=== PATIENT | female | born 1955 | race African-American/Black ===

== ENCOUNTER 2016-12-30 12:34 | Emergency (ER) | payer MEDICAID ==
[~2016-12-30] VITALS: Ht 149.9 cm; Wt 108.4 kg
[2016-12-30 13:05] VITALS: BP 117/112
--- NOTE | 2016-12-30 13:29 | Emergency Room Report ---
History of Present Illness General Chief Complaint: Dyspnea/Respdistress Source: Patient Present Illness HPI 61 YO Female presents to the ED c/o two temporary episodes of CP on Thursday with MILAN ever since. Pt also reports intermittent lower extremity swelling x 2 months. pt reports swelling progresses throughout the day and is usually resolved upon awakening in the am. pt. reports hx of HTN, and DM however is not prescribed medications. pt. states her last visit with a PCP was over 5 years ago. pt. denies recent illness, N/V/F/C, rashes. daughter reports that she heard audible wheezes from pt. throughout the weekend. pt. reports non productive cough. denies trauma/fall, erythema, or increased temperature of the extremities. Denies Palpitations, LOC, AMS, dizziness, Changes in Vision, Sensation, paresthesias, or a sudden severe headache. Allergies: Coded Allergies: BANANA (Verified Allergy, Unknown, 12/30/16) Patient History Past Medical History: see triage record Past Surgical History: none Pertinent Family History: none Last Menstrual Period: N/A Now: No Immunizations: UTD Reviewed Nursing Documentation: PMH: Agreed, PSxH: Agreed Nursing Documentation-PMH Hx Hypertension: Yes Hx Diabetes: Yes Review of Systems All Other Systems: negative except mentioned in HPI Physical Exam Vital Signs Date Time Temp Pulse Resp B/P Pulse Ox O2 Delivery O2 Flow Rate FiO2 12/30/16 12:56 98.2 83 22 117/112 97 Room Air Sp02 EP Interpretation: reviewed, abnormal - elevated diastolic pressure General Appearance: no apparent distress, alert, GCS 15, non-toxic, obese Head: normocephalic, atraumatic Eyes: bilateral eye PERRL, bilateral eye normal inspection ENT: hearing grossly normal, normal pharynx, no angioedema, normal voice Neck: full range of motion, supple/symm/no masses Respiratory: chest non-tender, lungs clear, normal breath sounds, speaking full sentences, other - distant lung sounds Cardiovascular #1: regular rate, rhythm, normal capillary refill, edema - bilateral 1+ non-pitting ankle edema Cardiovascular #2: 2+ dorsalis pedis (R), 2+ dorsalis pedis (L) Gastrointestinal: non tender, soft, no guarding, no rebound Rectal: deferred Musculoskeletal: back normal, gait/station normal, normal range of motion, non- tender, no calf tenderness Neurologic: alert, oriented x3, responsive, motor strength/tone normal, sensory intact, speech normal Psychiatric: judgement/insight normal, memory normal, mood/affect normal Skin: normal color, no rash, warm/dry, well hydrated Medical Decision Making PA Attestation Dr. Harden is my supervising Physician whom patient management has been discussed with. Diagnostic Impression: Primary Impression: Dyspnea on exertion Additional Impressions: Lower extremity edema HTN (hypertension) Qualified Codes: I15.9 - Secondary hypertension, unspecified Urinary tract infection Qualified Codes: N30.01 - Acute cystitis with hematuria ER Course 61 YO Female presents to the ED c/o two temporary episodes of CP on Thursday with MILAN ever since. Pt also reports intermittent lower extremity swelling x 2 months. pt reports swelling progresses throughout the day and is usually resolved upon awakening in the am. pt. reports hx of HTN, and DM however is not prescribed medications. pt. states her last visit with a PCP was over 5 years ago. pt. denies recent illness, N/V/F/C, rashes. daughter reports that she heard audible wheezes from pt. throughout the weekend. pt. reports non productive cough. denies trauma/fall, erythema, or increased temperature of the extremities. Denies Palpitations, LOC, AMS, dizziness, Changes in Vision, Sensation, paresthesias, or a sudden severe headache. Ddx considered but are not limited to [place], pneumonia, contusion, costochondritis , PE, ACS, Shoulder strain, Chest wall contusion. aortic dissection, elevated glucose, HTN Vital signs: are WNL, pt. is afebrile H&PE are most consistent with dyspnea on exertion requiring cardiac work up as this is a new onset, and pt. has cardiac risk factors. ORDERS: - EK BPM NSR, no acute ST changes interpreted by Dr. Harden -CBC: unremarkable -CMP: unremarkable -BNP: elevated 212 -CK-MB: WNL/unremarkable -Total CK: elevated 161 -Troponins: WNL/unremarkable -UA: moderate bacteria, elevated wbc's and leukocytes indicative of UTI CXR 1 view : No consolidation, effusion, pneumothorax or acute cardiopulmonary findings per soft read in ED by Dr. Harden - and confirmed in official radiology report. - CTA Chest: no definite large vessel central pulmonary embolus demonstrated, no acute pulmonary disease, borderline cardiomegaly per official radiology report. ED INTERVENTIONS: - PT. placed on cardiac monitoring. - Extensive pt. education on the importance of primary care, pt. is given a list of free/reduced cost clinics in the area for follow up. d/w pt. to return to the ED promptly if she has worsening or new symptoms. DISCHARGE: At this time pt. is stable for d/c to home. Will provide printed patient care instructions, and any necessary prescriptions. Care plan and follow up instructions have been discussed with the patient prior to discharge. Labs Test 12/30/16 14:00 12/30/16 15:10 White Blood Count 10.7 K/UL (4.8-10.8) Red Blood Count 4.03 M/UL (4.20-5.40) Hemoglobin 12.4 G/DL (12.0-16.0) Hematocrit 37.0 % (37.0-47.0) Mean Corpuscular Volume 92 FL (80-99) Mean Corpuscular Hemoglobin 30.8 PG (27.0-31.0) Mean Corpuscular Hemoglobin Concent 33.6 G/DL (32.0-36.0) Red Cell Distribution Width 12.9 % (11.6-14.8) Platelet Count 264 K/UL (150-450) Mean Platelet Volume 5.3 FL (6.5-10.1) Neutrophils (%) (Auto) 46.4 % (45.0-75.0) Lymphocytes (%) (Auto) 46.0 % (20.0-45.0) Monocytes (%) (Auto) 5.9 % (1.0-10.0) Eosinophils (%) (Auto) 0.8 % (0.0-3.0) Basophils (%) (Auto) 0.9 % (0.0-2.0) Sodium Level 144 mEQ/L (135-145) Potassium Level 4.2 mEQ/L (3.4-4.9) Chloride Level 100 mEQ/L (98-107) Carbon Dioxide Level 29 mEQ/L (20-30) Anion Gap 15 (5-15) Blood Urea Nitrogen 15 mg/dL (7-23) Creatinine 0.8 mg/dL (0.5-0.9) Estimat Glomerular Filtration Rate > 60 mL/min (>60) Glucose Level 95 mg/dL (74-106) Calcium Level 9.3 mg/dL (8.6-10.2) Total Bilirubin 0.3 mg/dL (0.0-1.2) Aspartate Amino Transf (AST/SGOT) 18 U/L (5-40) Alanine Aminotransferase (ALT/SGPT) 19 U/L (3-33) Alkaline Phosphatase 60 U/L (35-104) Total Creatine Kinase 161 U/L (26-140) Creatine Kinase MB 1.6 ng/mL (< 3.8) Creatine Kinase MB Relative Index 0.9 Troponin I < 0.30 ng/mL (<=0.30) Pro-B-Type Natriuretic Peptide 212 pg/mL (0-125) Total Protein 7.5 g/dL (6.6-8.7) Albumin 4.2 g/dL (3.5-5.2) Globulin 3.3 g/dL Albumin/Globulin Ratio 1.2 (1.0-2.7) Urine Color Pale yellow Urine Appearance Clear Urine pH 6.5 (4.5-8.0) Urine Specific [place] 1.010 (1.005-1.035) Urine Protein Negative (NEGATIVE) Urine Glucose (UA) Negative (NEGATIVE) Urine Ketones Negative (NEGATIVE) Urine Occult Blood 1+ (NEGATIVE) Urine Nitrite Negative (NEGATIVE) Urine Bilirubin Negative (NEGATIVE) Urine Urobilinogen Normal MG/DL (0.0-1.0) Urine Leukocyte Esterase 3+ (NEGATIVE) Urine RBC 2-4 /HPF (0 - 2) Urine WBC 5-10 /HPF (0 - 2) Urine Squamous Epithelial Cells Few /LPF (NONE/OCC) Urine Amorphous Sediment Few /LPF (NONE) Urine Bacteria Moderate /HPF (NONE) EKG Diagnostic Results EP Interpretation: Dr. Harden Rate: normal - 89 BPM Rhythm: NSR ST Segments: no acute changes ASA given to the pt in ED: No PA Scribe Text EKG has been reviewed and interpreted by Dr. Harden Chest X-Ray Diagnostic Results # of Views/Limited/Complete: 1 View Indication: Chest Pain Impression: No acute disease Date Electronically Signed: Dec 30, 2016 Time Electronically Signed: 16:10 Interpreting ER Physician: interpreted by Dr. Harden PA Scribe Text these interpretations performed by the Doctor were scribed by PA Last Vital Signs Date Time Temp Pulse Resp B/P Pulse Ox O2 Delivery O2 Flow Rate FiO2 12/30/16 12:56 98.2 83 22 117/112 97 Room Air Disposition: HOME, SELF-CARE Condition: Stable Scripts Albuterol Sulfate* (ALBUTEROL SULFATE MDI*) 8.5 Gm Hfa.aer.ad 2 PUFF INH Q4H, #1 INH 0 Refills Prov: Guerita Lancaster 12/30/16 Nitrofurantoin Monohyd/M-Cryst* (MACROBID 100 MG*) 100 Mg Capsule 100 MG ORAL EVERY 12 HOURS for 5 Days, #10 CAP Prov: Guerita Lancaster 12/30/16 Hydrochlorothiazide* (HYDROCHLOROTHIAZIDE*) 25 Mg Tablet 25 MG ORAL DAILY for 30 Days, #30 TAB Prov: Guerita Lancaster 12/30/16 Patient Instructions: Hypertension, Shortness of Breath, [id number] Additional Instructions: Take medications as directed. Follow up with Primary care provider in 3-5 days Review list of health clinics Return sooner to ED if new symptoms occur, or current symptoms become worse. - Please note that this Emergency Department Report was dictated using [email or web address] watcher technology software, occasionally this can lead to erroneous entry secondary to interpretation by the dictation equipment. Guerita Lancaster Dec 30, 2016 13:29
[2016-12-30 14:25] LABS: BASOPHILS % (AUTO) 0.9 % (0.0-2.0); EOSINOPHILS % (AUTO) 0.8 % (0.0-3.0); MEAN CORPUSCULAR HEMOGLOBIN 30.8 PG (27.0-31.0); MEAN CORPUSCULAR HGB CONC 33.6 G/DL (32.0-36.0); MEAN CORPUSCULAR VOLUME 92 FL (80-99); MEAN PLATELET VOLUME 5.3 FL (6.5-10.1); MONOCYTES % (AUTO) 5.9 % (1.0-10.0); NEUTROPHILS % (AUTO) 46.4 % (45.0-75.0); PLATELET COUNT 264 K/UL (150-450); RED BLOOD COUNT 4.03 M/UL (4.20-5.40); RED CELL DISTRIBUTION WIDTH 12.9 % (11.6-14.8); WHITE BLOOD COUNT 10.7 K/UL (4.8-10.8)
[2016-12-30] MEDS ORDERED: Lisinopril 10mg tab ORAL ONE (14:30)
[2016-12-30 14:42] LABS: TROPONIN I < 0.30 ng/mL (<=0.30)
[2016-12-30 14:45] LABS: ALANINE AMINOTRANSFERASE 19 U/L (3-33); ALBUMIN/GLOBULIN RATIO 1.2 (1.0-2.7); ANION GAP 15 (5-15); ASPARTATE AMINO TRANSFERASE 18 U/L (5-40); CALCIUM 9.3 mg/dL (8.6-10.2); CARBON DIOXIDE 29 mEQ/L (20-30); CHLORIDE 100 mEQ/L (98-107); CREATININE 0.8 mg/dL (0.5-0.9); GLOMERULAR FILTRATION RATE > 60 mL/min (>60); HEMOLYSIS 0; POTASSIUM 4.2 mEQ/L (3.4-4.9); SODIUM 144 mEQ/L (135-145); TOTAL PROTEIN 7.5 g/dL (6.6-8.7)
[2016-12-30 14:55] LABS: CKMB 1.6 ng/mL (< 3.8)
[2016-12-30 15:55] LABS: APPEARANCE,URINE CLEAR; KETONES,URINE NEGATIVE (NEGATIVE); LEUKOCYTE ESTERASE ,URINE 3+ (NEGATIVE); NITRITE,URINE NEGATIVE (NEGATIVE); PH,URINE 6.5 (4.5-8.0); PROTEIN,URINE NEGATIVE (NEGATIVE); UROBILINOGEN,URINE NORMAL MG/DL (0.0-1.0)
[2016-12-30 16:22] LABS: SQUAMOUS EPITHELIAL CELL,UR FEW /LPF (NONE/OCC)
[2016-12-30 16:23] LABS: AMORPHOUS SEDIMENT,UR FEW /LPF; BACTERIA,URINE MODERATE /HPF
[2016-12-30 16:30] VITALS: BP 156/80
--- NOTE | 2016-12-30 17:08 | Diagnostic Imaging Report ---
ndication: Shortness of breath, hypertension, feet swelling, pain Technique: IV administration nonionic contrast. Spiral acquisitions obtained from the lung bases to the lung apices. Multiplanar and 3-D reconstructions were generated. Total dose length product 1014 mGycm. CTDIvol(s) 12, 12, 41 mGy. Dose reduction achieved using automated exposure control Comparison: None Findings: Pulmonary arterial opacification is suboptimal, probably due to patient body habitus. This precludes confident exclusion of distal embolic disease. No gross large vessel central pulmonary emboli demonstrated. No thoracic aortic aneurysm or dissection. There is classic great vessel branching anatomy. Normal caliber pulmonary arteries. No evidence of left ventricular dilatation. Borderline cardiomegaly. Linear scarring is seen at the lung bases. No infiltrates, effusions, masses, or nodules. No pericardial effusion. No mediastinal or hilar mass or adenopathy. No axillary or chest wall mass or adenopathy. Limited evaluation of the upper dome anatomy is unremarkable. The bones demonstrate degenerative thoracic spondylosis changes. Impression: Limited exam, due to somewhat suboptimal opacification of the pulmonary arteries. No definite large vessel central pulmonary embolus demonstrated No acute pulmonary disease Borderline cardiomegaly Degenerative spondylosis incidentally noted The CT scanner at [facility] is accredited by the [employer] and the scans are performed using protocols designed to limit radiation exposure to as low as reasonably achievable to attain images of sufficient resolution adequate for diagnostic evaluation.
[2016-12-30] MEDS ORDERED: HYDROCHLOROTHIA25 MG ORAL (17:43)
[2016-12-30] MEDS ORDERED: NITROFURANTOIN100 M2 ORAL (17:43)
[2016-12-30] MEDS ORDERED: ALBUTEROL SULF8.5 GM INH (17:43)
[2016-12-30 17:49] VITALS: BP 169/87
--- NOTE | 2016-12-30 18:21 | Diagnostic Imaging Report ---
Indication: PAIN Technique: One view of the chest Comparison: none Findings: Lungs and pleural space are clear. Heart size is normal. The patient is rotated to the left Impression: No acute process
--- NOTE | 2016-12-31 16:38 | Cardiology Report ---
APPROVED REPORT EKG Measurement Heart [id number] Normal sinus rhythm Anterior infarct, age undetermined Abnormal ECG
== END 2016-12-30 17:49 | disposition home or self-care (01) ==
LOC: EMR 13:30
DX: R06.00 Dyspnea, unspecified (principal); R60.0 Localized edema; I10 Essential (primary) hypertension; N39.0 Urinary tract infection, site not specified; E11.9 Type 2 diabetes mellitus without complications
CPT/HCPCS: 36415; 71010; 71275; 80053; 81003; 82550; 82553; 83880; 84484; 85025; 87086; 87181; 93005; 99284; Q9967

== ENCOUNTER 2017-01-07 20:59 | Inpatient (IN) | payer MEDICAID ==
[~2017-01-07] VITALS: Ht 149.9 cm; Wt 112.0 kg
[~2017-01-07 20:59] MED LIST: ALBUTEROL SULF8.5 GM INH; HYDROCHLOROTHIA25 MG ORAL; NITROFURANTOIN100 M2 ORAL
[2017-01-07] MEDS ORDERED: Tubing IV Cassette IV ONE (21:21)
[2017-01-07] MEDS ORDERED: Albuterol ud Inhalation HHN ONE (21:30)
[2017-01-07] MEDS ORDERED: Ipratropium 0.02% Inh Soln 2.5ml UD HHN ONE (21:30)
[2017-01-07] MEDS ORDERED: Morphine Sulfate 4mg/ml Inj IVP ONE ×2 (21:30→23:30)
[2017-01-07 21:34] LABS: BASOPHILS % (AUTO) 1.1 % (0.0-2.0); EOSINOPHILS % (AUTO) 0.5 % (0.0-3.0); LYMPHOCYTES % (AUTO) 44.4 % (20.0-45.0); MEAN CORPUSCULAR HEMOGLOBIN 30.7 PG (27.0-31.0); MEAN CORPUSCULAR HGB CONC 32.6 G/DL (32.0-36.0); MEAN CORPUSCULAR VOLUME 94 FL (80-99); MEAN PLATELET VOLUME 5.9 FL (6.5-10.1); MONOCYTES % (AUTO) 5.7 % (1.0-10.0); NEUTROPHILS % (AUTO) 48.5 % (45.0-75.0); PLATELET COUNT 309 K/UL (150-450); RED BLOOD COUNT 4.12 M/UL (4.20-5.40); RED CELL DISTRIBUTION WIDTH 12.6 % (11.6-14.8); WHITE BLOOD COUNT 13.1 K/UL (4.8-10.8)
[2017-01-07 21:37] LABS: ALANINE AMINOTRANSFERASE 21 U/L (3-33); ALBUMIN/GLOBULIN RATIO 1.1 (1.0-2.7); ANION GAP 16 (5-15); ASPARTATE AMINO TRANSFERASE 31 U/L (5-40); CALCIUM 9.3 mg/dL (8.6-10.2); CARBON DIOXIDE 28 mEQ/L (20-30); CHLORIDE 93 mEQ/L (98-107); CREATININE 1.1 mg/dL (0.5-0.9); GLOMERULAR FILTRATION RATE > 60 mL/min (>60); HEMOLYSIS 187; POTASSIUM 4.7 mEQ/L (3.4-4.9); SODIUM 137 mEQ/L (135-145); TOTAL PROTEIN 7.7 g/dL (6.6-8.7); TROPONIN I < 0.30 ng/mL (<=0.30)
[2017-01-07 21:47] LABS: CKMB 1.7 ng/mL (< 3.8)
[2017-01-07 23:26] LABS: APPEARANCE,URINE CLEAR; KETONES,URINE NEGATIVE (NEGATIVE); LEUKOCYTE ESTERASE ,URINE 2+ (NEGATIVE); NITRITE,URINE NEGATIVE (NEGATIVE); PH,URINE 6 (4.5-8.0); PROTEIN,URINE NEGATIVE (NEGATIVE); UROBILINOGEN,URINE NORMAL MG/DL (0.0-1.0)
[2017-01-07 23:31] VITALS: BP 151/73
--- NOTE | 2017-01-07 23:39 | Emergency Room Report ---
History of Present Illness General Chief Complaint: Chest Pain Source: Patient Present Illness HPI 61-year-old female presents to ED complaining of chest pain. Per EMS patient chest pain started just prior to arrival. Started at rest. Midsternal, pressure-like, 10 out of 10 initially. Given aspirin and nitroglycerin x2. States chest pain is improved is currently a 7/10. Denies shortness of breath. Patient has history of hypertension and is recently started medication which was prescribed to here at [place]. Does not currently have a PMD. Denies smoking or drug use. No other aggravating or relieving factors. Denies any other associated symptoms Allergies: Coded Allergies: BANANA (Verified Allergy, Unknown, 12/30/16) Patient History Past Medical History: DM, HTN Past Surgical History: none Pertinent Family History: none Social History: Denies: alcohol use, drug use, smoking Last Menstrual Period: N/A Now: No Immunizations: UTD Reviewed Nursing Documentation: PMH: Agreed, PSxH: Agreed Nursing Documentation-PMH Hx Hypertension: Yes Hx Diabetes: Yes Review of Systems All Other Systems: negative except mentioned in HPI Physical Exam Vital Signs Date Time Temp Pulse Resp B/P Pulse Ox O2 Delivery O2 Flow Rate FiO2 01/07/17 20:55 98.8 96 20 140/79 96 Room Air Sp02 EP Interpretation: reviewed, normal General Appearance: alert, GCS 15, non-toxic, obese Head: normocephalic, atraumatic Eyes: bilateral eye PERRL, bilateral eye normal inspection ENT: hearing grossly normal, normal pharynx, no angioedema, normal voice Neck: full range of motion, supple/symm/no masses Respiratory: chest non-tender, lungs clear, normal breath sounds, speaking full sentences Cardiovascular #1: regular rate, rhythm, no edema Cardiovascular #2: 2+ carotid (R), 2+ carotid (L), 2+ radial (R), 2+ radial (L) , 2+ dorsalis pedis (R), 2+ dorsalis pedis (L) Gastrointestinal: normal bowel sounds, non tender, soft, non-distended, no guarding, no rebound Rectal: deferred Genitourinary: normal inspection, no CVA tenderness Musculoskeletal: back normal, gait/station normal, normal range of motion, non- tender Neurologic: alert, oriented x3, responsive, motor strength/tone normal, sensory intact, speech normal Psychiatric: judgement/insight normal, memory normal, mood/affect normal, no suicidal/homicidal ideation Reflexes: 3+ bicep (R), 3+ bicep (L), 3+ tricep (R), 3+ tricep (L), 3+ knee (R) , 3+ knee (L) Skin: normal color, no rash, warm/dry, well hydrated Lymphatic: no adenopathy Medical Decision Making Diagnostic Impression: Primary Impression: ACS (acute coronary syndrome) ER Course Hospital Course 61-year-old female presents ED complaining of chest pain. Improved after aspirin and nitroglycerin Differential diagnoses include: DE/unstable angina, contusion, muscle strain, PTX, rib fracture Clinical course Patient placed on stretcher. on phototypesetting equipment monitor. After initial history and physical I ordered labs, EKG, chest x-ray, morphine labs reviewed- no leukocytosis, hemoglobin/hematocrit stable, electrolytes okay , troponins negative EKG-normal sinus rhythm no acute ischemic changes interpreted by me Chest x-ray- poor respiratory effort no acute infiltrate, no cardiomegaly On reassessment chest pain is improved Case discussed with Dr. Vann and he agreed to accept the patient to his service for further care and support I. I feel this is a highly complex case requiring extensive working including EKG/Rhythm strip, Xray/CT/US, Blood/urine lab work, repeat exams while in ED, and administration of strong opiates/narcotics for pain control, admission to hospital or close patient follow up. Diagnosis - ACS admitted to telemetry in serious condition Labs Test 01/07/17 21:10 01/07/17 22:45 White Blood Count 13.1 K/UL (4.8-10.8) Red Blood Count 4.12 M/UL (4.20-5.40) Hemoglobin 12.6 G/DL (12.0-16.0) Hematocrit 38.8 % (37.0-47.0) Mean Corpuscular Volume 94 FL (80-99) Mean Corpuscular Hemoglobin 30.7 PG (27.0-31.0) Mean Corpuscular Hemoglobin Concent 32.6 G/DL (32.0-36.0) Red Cell Distribution Width 12.6 % (11.6-14.8) Platelet Count 309 K/UL (150-450) Mean Platelet Volume 5.9 FL (6.5-10.1) Neutrophils (%) (Auto) 48.5 % (45.0-75.0) Lymphocytes (%) (Auto) 44.4 % (20.0-45.0) Monocytes (%) (Auto) 5.7 % (1.0-10.0) Eosinophils (%) (Auto) 0.5 % (0.0-3.0) Basophils (%) (Auto) 1.1 % (0.0-2.0) Sodium Level 137 mEQ/L (135-145) Potassium Level 4.7 mEQ/L (3.4-4.9) Chloride Level 93 mEQ/L (98-107) Carbon Dioxide Level 28 mEQ/L (20-30) Anion Gap 16 (5-15) Blood Urea Nitrogen 22 mg/dL (7-23) Creatinine 1.1 mg/dL (0.5-0.9) Estimat Glomerular Filtration Rate > 60 mL/min (>60) Glucose Level 128 mg/dL (74-106) Calcium Level 9.3 mg/dL (8.6-10.2) Total Bilirubin 0.4 mg/dL (0.0-1.2) Aspartate Amino Transf (AST/SGOT) 31 U/L (5-40) Alanine Aminotransferase (ALT/SGPT) 21 U/L (3-33) Alkaline Phosphatase 62 U/L (35-104) Total Creatine Kinase 281 U/L (26-140) Creatine Kinase MB 1.7 ng/mL (< 3.8) Creatine Kinase MB Relative Index 0.6 Troponin I < 0.30 ng/mL (<=0.30) Pro-B-Type Natriuretic Peptide 33 pg/mL (0-125) Total Protein 7.7 g/dL (6.6-8.7) Albumin 4.1 g/dL (3.5-5.2) Globulin 3.6 g/dL Albumin/Globulin Ratio 1.1 (1.0-2.7) EKG Diagnostic Results Rate: normal Rhythm: NSR ST Segments: no acute changes ASA given to the pt in ED: No - given by EMS Rhythm Strip Diag. Results EP Interpretation: yes Rhythm: NSR, no PVC's, no ectopy Chest X-Ray Diagnostic Results Chest X-Ray Ordered: Yes # of Views/Limited/Complete: 1 View EP Interpretation: Yes Interpretation: no consolidation, no pneumothorax, no acute cardiopulmonary disease Indication: Chest Pain Impression: Other - poor inspiratory effort Interpreting ER Provider: Segun Saunders Last Vital Signs Date Time Temp Pulse Resp B/P Pulse Ox O2 Delivery O2 Flow Rate FiO2 01/07/17 23:31 98.8 88 22 151/73 100 Room Air Status: improved Disposition: ADMITTED INPATIENT Condition: Serious Referrals: NOT CHOSEN EL/,REFERRING (PCP) SEGUN SAUNDERS M.D. Jan 07, 2017 23:39
[2017-01-07 23:41] LABS: RBC,URINE 0-2 /HPF (0 - 2)
[2017-01-07 23:42] LABS: BACTERIA,URINE FEW /HPF; SQUAMOUS EPITHELIAL CELL,UR FEW /LPF (NONE/OCC)
[2017-01-08] MEDS ORDERED: Miralax 17gm pkt ORAL PRN
[2017-01-08] MEDS ORDERED: Morphine Sulfate 2mg/ml Inj IVP PRN
[2017-01-08] MEDS ORDERED: Nitroglycerin Subl 0.4mg tab (Bottle Of 25) SL PRN
[2017-01-08] MEDS ORDERED: Albuterol 90mcg Inhaler 8gm INH PRN
[2017-01-08] MEDS ORDERED: Milk of Magnesia 30ml Ud ORAL PRN
[2017-01-08] MEDS ORDERED: Morphine Sulfate 4mg/ml Inj IVP PRN
[2017-01-08] MEDS ORDERED: Zolpidem 5mg tab ORAL PRN
[2017-01-08 00:39] VITALS: BP 130/70
[2017-01-08 04:00] VITALS: BP 135/78
[2017-01-08 08:06] VITALS: BP 150/96
[2017-01-08] MEDS: Docusate 100mg cap ORAL SCH ×2 (08:20→21:13)
[2017-01-08] MEDS: Heparin 5000 units/ml inj SUBQ SCH ×2 (08:23→21:14)
[2017-01-08 08:30] LABS: BASOPHILS % (AUTO) 0.7 % (0.0-2.0); EOSINOPHILS % (AUTO) 0.6 % (0.0-3.0); MEAN CORPUSCULAR HEMOGLOBIN 31.3 PG (27.0-31.0); MEAN CORPUSCULAR HGB CONC 32.9 G/DL (32.0-36.0); MEAN CORPUSCULAR VOLUME 95 FL (80-99); MEAN PLATELET VOLUME 5.7 FL (6.5-10.1); MONOCYTES % (AUTO) 8.6 % (1.0-10.0); NEUTROPHILS % (AUTO) 43.1 % (45.0-75.0); PLATELET COUNT 267 K/UL (150-450); RED BLOOD COUNT 3.65 M/UL (4.20-5.40); RED CELL DISTRIBUTION WIDTH 12.6 % (11.6-14.8); WHITE BLOOD COUNT 9.5 K/UL (4.8-10.8)
[2017-01-08 09:09] LABS: TROPONIN I < 0.30 ng/mL (<=0.30)
[2017-01-08 09:12] LABS: ALANINE AMINOTRANSFERASE 16 U/L (3-33); ALBUMIN/GLOBULIN RATIO 1.2 (1.0-2.7); ANION GAP 13 (5-15); ASPARTATE AMINO TRANSFERASE 15 U/L (5-40); CALCIUM 8.9 mg/dL (8.6-10.2); CARBON DIOXIDE 28 mEQ/L (20-30); CHLORIDE 96 mEQ/L (98-107); CHOLESTEROL 177 mg/dL (< 200); CHOLESTEROL/HDL RATIO 3.8 (3.3-4.4); CREATININE 0.8 mg/dL (0.5-0.9); GLOMERULAR FILTRATION RATE > 60 mL/min (>60); HEMOLYSIS 4; LDL CHOLESTEROL (CALC.) 113 mg/dL (60-99); MAGNESIUM 1.8 mg/dL (1.7-2.5); POTASSIUM 3.5 mEQ/L (3.4-4.9); SODIUM 137 mEQ/L (135-145); TOTAL PROTEIN 6.6 g/dL (6.6-8.7)
[2017-01-08 09:24] LABS: HEMOGLOBIN A1C 6.2 % (< 6.0)
[2017-01-08 11:58] VITALS: BP 124/82
[2017-01-08 12:16] LABS: TROPONIN I < 0.30 ng/mL (<=0.30)
--- NOTE | 2017-01-08 14:15 | History and Physical ---
History of Present Illness General Date patient seen: Jan 08, 2017 Reason for Hospitalization: Chest Pain Present Illness HPI 61-year-old female with hx of DM, asthma, HTN presents to ED complaining of chest pain just prior to arrival at rest. Midsternal, pressure-like, 10 out of 10 initially. Given aspirin and nitroglycerin x2. Denies smoking or drug use. No other aggravating or relieving factors. Denies any other associated symptoms Allergies: Coded Allergies: BANANA (Verified Allergy, Unknown, 12/30/16) Medication History Scheduled Albuterol Sulfate* (Albuterol Sulfate Mdi*), 2 PUFF INH Q4H Hydrochlorothiazide* (Hydrochlorothiazide*), 25 MG ORAL DAILY Nitrofurantoin Monohyd/M-Cryst* (Macrobid 100 Mg*), 100 MG ORAL EVERY 12 HOURS Patient History Healthcare decision maker Resuscitation status Full Code Advanced Directive on File No Past Medical/Surgical History Past Medical/Surgical History: (1) Diabetes mellitus (2) HTN (hypertension) (3) Asthma Review of Systems All Other Systems: negative except mentioned in HPI Physical Exam General Appearance: no apparent distress Lines, tubes and drains: peripheral, central line HEENT: normocephalic, atraumatic Neck: non-tender, normal alignment Respiratory/Chest: chest wall non-tender, normal breath sounds Cardiovascular/Chest: normal peripheral pulses, normal rate Abdomen: non tender Last 24 Hour Vital Signs Date Time Temp Pulse Resp B/P Pulse Ox O2 Delivery O2 Flow Rate FiO2 01/08/17 12:00 78 01/08/17 11:58 97.9 80 18 124/82 98 2.0 01/08/17 08:06 97.7 80 18 150/96 96 Nasal Cannula 2.0 01/08/17 08:00 79 01/08/17 06:48 82 18 Nasal Cannula 2.0 28 01/08/17 06:48 Nasal Cannula 2.0 28 01/08/17 06:48 98 Nasal Cannula 2.0 28 01/08/17 04:00 81 01/08/17 04:00 98.0 84 19 135/78 99 Nasal Cannula 2.0 01/08/17 00:39 97.7 90 20 130/70 96 Room Air 01/08/17 00:00 98.8 88 22 151/73 100 Room Air 01/07/17 23:55 98.8 01/07/17 23:31 98.8 88 22 151/73 100 Room Air 01/07/17 22:25 82 17 100 Room Air 01/07/17 22:10 83 18 100 Room Air 01/07/17 22:09 83 18 Room Air 01/07/17 21:53 98.7 01/07/17 21:05 96 20 Room Air 01/07/17 20:55 98.8 96 20 140/79 96 Room Air Intake and Output 01/07/17 01/08/17 19:00 07:00 Intake Total 750 ml Output Total 800 ml Balance -50 ml Intake Oral 250 ml IV Total 500 ml Output Urine Total 800 ml # Voids 3 Laboratory Tests Test 01/07/17 21:10 01/07/17 22:45 01/08/17 07:05 01/08/17 10:30 White Blood Count 13.1 K/UL (4.8-10.8) H 9.5 K/UL (4.8-10.8) Red Blood Count 4.12 M/UL (4.20-5.40) L 3.65 M/UL (4.20-5.40) L Hemoglobin 12.6 G/DL (12.0-16.0) 11.4 G/DL (12.0-16.0) L Hematocrit 38.8 % (37.0-47.0) 34.7 % (37.0-47.0) L Mean Corpuscular Volume 94 FL (80-99) 95 FL (80-99) Mean Corpuscular Hemoglobin 30.7 PG (27.0-31.0) 31.3 PG (27.0-31.0) H Mean Corpuscular Hemoglobin Concent 32.6 G/DL (32.0-36.0) 32.9 G/DL (32.0-36.0) Red Cell Distribution Width 12.6 % (11.6-14.8) 12.6 % (11.6-14.8) Platelet Count 309 K/UL (150-450) 267 K/UL (150-450) Mean Platelet Volume 5.9 FL (6.5-10.1) L 5.7 FL (6.5-10.1) L Neutrophils (%) (Auto) 48.5 % (45.0-75.0) 43.1 % (45.0-75.0) L Lymphocytes (%) (Auto) 44.4 % (20.0-45.0) 47.0 % (20.0-45.0) H Monocytes (%) (Auto) 5.7 % (1.0-10.0) 8.6 % (1.0-10.0) Eosinophils (%) (Auto) 0.5 % (0.0-3.0) 0.6 % (0.0-3.0) Basophils (%) (Auto) 1.1 % (0.0-2.0) 0.7 % (0.0-2.0) Sodium Level 137 mEQ/L (135-145) 137 mEQ/L (135-145) Potassium Level 4.7 mEQ/L (3.4-4.9) 3.5 mEQ/L (3.4-4.9) Chloride Level 93 mEQ/L (98-107) L 96 mEQ/L (98-107) L Carbon Dioxide Level 28 mEQ/L (20-30) 28 mEQ/L (20-30) Anion Gap 16 (5-15) H 13 (5-15) Blood Urea Nitrogen 22 mg/dL (7-23) 18 mg/dL (7-23) Creatinine 1.1 mg/dL (0.5-0.9) H 0.8 mg/dL (0.5-0.9) Estimat Glomerular Filtration Rate > 60 mL/min (>60) > 60 mL/min (>60) Glucose Level 128 mg/dL (74-106) H 151 mg/dL (74-106) H Calcium Level 9.3 mg/dL (8.6-10.2) 8.9 mg/dL (8.6-10.2) Total Bilirubin 0.4 mg/dL (0.0-1.2) 0.4 mg/dL (0.0-1.2) Aspartate Amino Transf (AST/SGOT) 31 U/L (5-40) 15 U/L (5-40) Alanine Aminotransferase (ALT/SGPT) 21 U/L (3-33) 16 U/L (3-33) Alkaline Phosphatase 62 U/L (35-104) 57 U/L (35-104) Total Creatine Kinase 281 U/L (26-140) H Creatine Kinase MB 1.7 ng/mL (< 3.8) Creatine Kinase MB Relative Index 0.6 Troponin I < 0.30 ng/mL (<=0.30) < 0.30 ng/mL (<=0.30) < 0.30 ng/mL (<=0.30) Pro-B-Type Natriuretic Peptide 33 pg/mL (0-125) Total Protein 7.7 g/dL (6.6-8.7) 6.6 g/dL (6.6-8.7) Albumin 4.1 g/dL (3.5-5.2) 3.7 g/dL (3.5-5.2) Globulin 3.6 g/dL 2.9 g/dL Albumin/Globulin Ratio 1.1 (1.0-2.7) 1.2 (1.0-2.7) Urine Color Pale yellow Urine Appearance Clear Urine pH 6 (4.5-8.0) Urine Specific Crooks 1.015 (1.005-1.035) Urine Protein Negative (NEGATIVE) Urine Glucose (UA) Negative (NEGATIVE) Urine Ketones Negative (NEGATIVE) Urine Occult Blood Negative (NEGATIVE) Urine Nitrite Negative (NEGATIVE) Urine Bilirubin Negative (NEGATIVE) Urine Urobilinogen Normal MG/DL (0.0-1.0) Urine Leukocyte Esterase 2+ (NEGATIVE) H Urine RBC 0-2 /HPF (0 - 2) Urine WBC 10-15 /HPF (0 - 2) H Urine Squamous Epithelial Cells Few /LPF (NONE/OCC) Urine Bacteria Few /HPF (NONE) Hemoglobin A1c 6.2 % (< 6.0) H Magnesium Level 1.8 mg/dL (1.7-2.5) Triglycerides Level 86 mg/dL (< 150) Cholesterol Level 177 mg/dL (< 200) LDL Cholesterol 113 mg/dL (60-99) H HDL Cholesterol 47 mg/dL (> 60) Cholesterol/HDL Ratio 3.8 (3.3-4.4) Thyroid Stimulating Hormone (TSH) 2.690 uIU/mL (0.300-4.500) Height (Feet): 4 Height (Inches): 11.00 Weight (Pounds): 247 Medications Current Medications Medications (Trade) Dose Ordered Sig/Josue Route PRN Reason Start Time Stop Time Status Last Admin Dose Admin Acetaminophen (Tylenol) 650 mg Q4H PRN ORAL Mild Pain (Pain Scale 1-3) 01/08/17 00:00 02/07/17 00:00 Acetaminophen (Tylenol) 650 mg Q4H PRN ORAL fever 01/08/17 00:00 02/07/17 00:00 Albuterol Sulfate (Proventil MDI) 2 puff Q4H PRN INH SOB, wheezing 01/08/17 00:00 02/07/17 00:00 Bisacodyl (Dulcolax) 10 mg HSPRN PRN RECTAL Constipation 01/08/17 00:00 02/07/17 00:00 Dextrose (Dextrose 50%) STAT PRN IV Hypoglycemia 01/08/17 00:00 02/07/17 00:00 Docusate Sodium (Colace) 100 mg EVERY 12 HOURS ORAL 01/08/17 09:00 02/07/17 08:59 01/08/17 08:20 Heparin Sodium (Porcine) (Heparin 5000 units/ml) 5,000 units EVERY 12 HOURS SUBQ 01/08/17 09:00 02/07/17 08:59 01/08/17 08:23 Hydrochlorothiazide (Hydrodiuril) 25 mg DAILY ORAL 01/08/17 09:00 02/07/17 08:59 01/08/17 08:20 Magnesium Hydroxide (Mom) 30 ml HSPRN PRN ORAL Constipation 01/08/17 00:00 02/07/17 00:00 Morphine Sulfate (Morphine Sulfate) 2 mg Q4H PRN IVP Moderate Pain (Pain Scale 4-6) 01/08/17 00:00 01/15/17 00:00 01/08/17 08:21 Morphine Sulfate (Morphine Sulfate) 4 mg Q4H PRN IVP Severe Pain (Pain Scale 7-10) 01/08/17 00:00 01/15/17 00:00 Nitroglycerin (Ntg) 0.4 mg Q5M X 3 DOSES PRN SL Prn Chest Pain 01/08/17 00:00 02/07/17 00:00 Ondansetron HCl (Zofran) 4 mg Q6H PRN IVP Nausea & Vomiting 01/08/17 00:00 02/07/17 00:00 Polyethylene Glycol (Miralax) 17 gm HSPRN PRN ORAL Constipation 01/08/17 00:00 02/07/17 00:00 Zolpidem Tartrate (Ambien) 5 mg HSPRN PRN ORAL Insomnia 01/08/17 00:00 02/07/17 00:00 Assessment/Plan Problem List: (1) ACS (acute coronary syndrome) ICD Codes: I24.9 - Acute ischemic heart disease, unspecified SNOMED: 794657235 (2) Diabetes mellitus ICD Codes: E11.9 - Type 2 diabetes mellitus without complications SNOMED: 98431289 (3) Asthma ICD Codes: J45.909 - Unspecified asthma, uncomplicated SNOMED: 043187585 (4) HTN (hypertension) ICD Codes: I10 - Essential (primary) hypertension SNOMED: 76703947 Assessment/Plan serial ekg, troponin, echo cardiology to see DELMY MURILLO Jan 08, 2017 14:15
[2017-01-08 16:01] VITALS: BP 135/75
[2017-01-08 20:08] VITALS: BP 133/87
[2017-01-08] MEDS ORDERED: Atorvastatin 20mg tab ORAL SCH (21:00)
[2017-01-08] MEDS: Aspirin EC 81mg tab ORAL SCH (21:13)
--- NOTE | 2017-01-08 23:16 | Consultation ---
DATE OF CONSULTATION: 01/08/2017 CARDIOLOGY CONSULTATION REFERRING PHYSICIAN: Catrachita Aranda M.D. REASON FOR CONSULTATION: Management of chest pain. HISTORY OF PRESENT ILLNESS: The patient is a very unfortunate 61-year-old female, who presents for the second time to the emergency department in the past week with complaint of chest pain. Apparently, the chest pain has been going on for the past week associated with shortness of breath. She presented to this hospital a week ago and underwent CT angiography of chest, which ruled out pulmonary embolism. At that time, chest x-ray was also unremarkable and she was discharged home. She continued to have pressure-like midsternal chest pain of 10/10 and at this time, she got admitted. Shortness of breath according to her has been going on for about two weeks. She denies any cold symptoms. She has also cough which she attributes to her underlying asthma. PAST MEDICAL HISTORY: 1. Diabetes mellitus. 2. Hypertension. 3. History of asthma. 4. Obesity. PAST SURGICAL HISTORY: None. CURRENT MEDICATIONS: List of her current medication include albuterol inhaler 2 puffs q.4 hours, hydrochlorothiazide 25 mg daily, and nitrofurantoin 100 mg twice daily. FAMILY HISTORY: No premature coronary artery disease in first-degree relatives. SOCIAL HISTORY: Denies any tobacco, alcohol, or illicit drug use. REVIEW OF SYSTEMS: A 12-system review was done essentially negative except what I mentioned in the history of present illness. PHYSICAL EXAMINATION: VITAL SIGNS: On arrival to the emergency department, blood pressure was 140/79, pulse of 96, respirations of 20, O2 saturation 96%, and temperature 98 degrees Fahrenheit. GENERAL: The patient is a very unfortunate 61-year-old, morbidly obese, black Citizen Of [place], in no apparent respiratory distress. HEENT: Atraumatic and normocephalic. Anicteric. Pupils are equal, round, and reactive to light and accommodation. Extraocular muscles are intact. NECK: JVP is less than 5 cm. No carotid bruits. Carotid upstrokes 2+ bilaterally. CARDIOVASCULAR: Normal S1 and S2. Regular rate and rhythm. No murmurs, gallops, or rubs. PMI is at fourth intercostal space at the midclavicular line. LUNGS: Clear to auscultation bilaterally. ABDOMEN: Soft, nontender, and nondistended. No hepatosplenomegaly. Positive bowel sounds. EXTREMITIES: No evidence of edema, clubbing, or cyanosis. LABORATORY AND DIAGNOSTIC FINDINGS: Sodium is 137, potassium 3.5, chloride 96, bicarbonate 28, BUN 18, creatinine 0.8, and glucose is 151. Hemoglobin A1c is 6.2. Calcium is 8.9. Troponin I x3 is negative. ProBNP was 33. Total cholesterol was 177. Triglycerides 86, LDL of 113 and HDL of 47. WBC was 9.5, hemoglobin 11.4, hematocrit 34.7, and platelet count 267,000. A 12-lead electrocardiogram shows sinus rhythm, heart rate of [address] and T-wave abnormalities. Normal QT interval. No evidence of left ventricular hypertrophy. ASSESSMENT AND PLAN: The patient is a very unfortunate 61-year-old lady who was seen in Cardiology consultation at request of Dr. Aranda. 1. Chest pain atypical. However, in view of diabetes mellitus, hypertension and hyperlipidemia the patient would be transferred intermediate for coronary artery disease and will require cardiac stress imaging study. We will obtain a dobutamine stress echocardiography to rule out obstructive coronary artery disease. Further therapeutic and diagnostic decision will be based on the tests. 2. Morbid obesity. 3. History of asthma. 4. Diabetes mellitus. We will recommend aspirin and statin therapy in this patient. 5. Hypertension. The patient will be continued on hydrochlorothiazide. I would place a hold on calcium channel allison and beta blockers until stress test is done. In fact the blood pressure is currently well controlled. I would like to thank, Dr. Aranda, for allowing me to participate in the care of this patient. Holland Kirby M.D. DR: KARRIE JOB#: [id number] CC:
[2017-01-09] VITALS: BP 137/74
[2017-01-09 04:00] VITALS: BP 135/77
[2017-01-09 08:00] VITALS: BP 138/82
--- NOTE | 2017-01-09 08:14 | Pulmonology Progress Note ---
Assessment/Plan Assessment/Plan ASSESSMENT noncardiac chest pain possible costochondritis r/o ACS DM HTN Hx of asthma PLAN OF CAER tele serial troponin negative ECG no acute ischemic changes patient was ruled out for acute MN ECHO with EF 55-60% cardio follows per cardio due to risk factors, patient needs stress test dobutamine stress test pending BS management with SS of insulin BP management with HCTZ ( BB and CCB on hold for test) O2 HHN prm lipid panel with elevated LDL and normal TG and TC ASA and statin added to regimen DVT prophylaxis pain management dc plan if stress test negative case discussed and evaluated by supervising physician addendum: stress test nonischemic chest pain noncardiac, possible costochondritis advised to pt trial of NSAIDs OTC , dc today script for ASA and statin provided Subjective Allergies: Coded Allergies: BANANA (Verified Allergy, Unknown, 12/30/16) Subjective denies chest pain, SOB c/o headache awaiting for stress test Objective Last 24 Hour Vital Signs Date Time Temp Pulse Resp B/P Pulse Ox O2 Delivery O2 Flow Rate FiO2 01/09/17 04:00 98.4 90 21 135/77 Room Air 01/09/17 04:00 78 01/09/17 00:00 97.7 85 20 137/74 90 Room Air 01/09/17 00:00 88 01/08/17 20:08 97.9 97 20 133/87 97 Room Air 01/08/17 20:08 97 Nasal Cannula 2.0 28 01/08/17 20:08 85 18 Nasal Cannula 2.0 28 01/08/17 20:08 Nasal Cannula 2.0 28 01/08/17 20:00 87 01/08/17 16:01 97.7 78 18 135/75 98 Nasal Cannula 2.0 01/08/17 16:00 91 01/08/17 12:00 78 01/08/17 11:58 97.9 80 18 124/82 98 2.0 01/08/17 08:06 97.7 80 18 150/96 96 Nasal Cannula 2.0 Intake and Output 01/08/17 01/09/17 19:00 07:00 Intake Total 720 ml 240 ml Output Total 500 ml Balance 720 ml -260 ml Intake Oral 720 ml 240 ml Output Urine Total 500 ml # Voids 3 5 # Bowel Movements 1 General Appearance: no acute distress, other - A/A/O x 4 morbidly obese AA female HEENT: normocephalic, atraumatic, anicteric, mucous membranes moist Respiratory/Chest: lungs clear, no respiratory distress, no accessory muscle use Cardiovascular: normal rate - distant heart sounds , regular rhythm Abdomen: normal bowel sounds, soft, non tender - obese Extremities: no edema Neurologic/Psychiatric: no motor/sensory deficits, abnormal gait, oriented x 3 , responsive Musculoskeletal: normal muscle bulk Laboratory Tests 01/08/17 10:30: Troponin I < 0.30 Current Medications Medications (Trade) Dose Ordered Sig/Josue Route PRN Reason Start Time Stop Time Status Last Admin Dose Admin Acetaminophen (Tylenol) 650 mg Q4H PRN ORAL Mild Pain (Pain Scale 1-3) 01/08/17 00:00 02/07/17 00:00 Acetaminophen (Tylenol) 650 mg Q4H PRN ORAL fever 01/08/17 00:00 02/07/17 00:00 Albuterol Sulfate (Proventil MDI) 2 puff Q4H PRN INH SOB, wheezing 01/08/17 00:00 02/07/17 00:00 Aspirin (Ecotrin) 81 mg DAILY ORAL 01/08/17 21:00 02/07/17 20:59 01/08/17 21:13 Atorvastatin Calcium (Lipitor) 20 mg BEDTIME ORAL 01/08/17 21:00 02/07/17 20:59 01/08/17 21:13 Bisacodyl (Dulcolax) 10 mg HSPRN PRN RECTAL Constipation 01/08/17 00:00 02/07/17 00:00 Dextrose (Dextrose 50%) STAT PRN IV Hypoglycemia 01/08/17 00:00 02/07/17 00:00 Docusate Sodium (Colace) 100 mg EVERY 12 HOURS ORAL 01/08/17 09:00 02/07/17 08:59 01/08/17 21:13 Heparin Sodium (Porcine) (Heparin 5000 units/ml) 5,000 units EVERY 12 HOURS SUBQ 01/08/17 09:00 02/07/17 08:59 01/08/17 21:14 Hydrochlorothiazide (Hydrodiuril) 25 mg DAILY ORAL 01/08/17 09:00 02/07/17 08:59 01/08/17 08:20 Magnesium Hydroxide (Mom) 30 ml HSPRN PRN ORAL Constipation 01/08/17 00:00 02/07/17 00:00 Morphine Sulfate (Morphine Sulfate) 2 mg Q4H PRN IVP Moderate Pain (Pain Scale 4-6) 01/08/17 00:00 01/15/17 00:00 01/08/17 08:21 Morphine Sulfate (Morphine Sulfate) 4 mg Q4H PRN IVP Severe Pain (Pain Scale 7-10) 01/08/17 00:00 01/15/17 00:00 Nitroglycerin (Ntg) 0.4 mg Q5M X 3 DOSES PRN SL Prn Chest Pain 01/08/17 00:00 02/07/17 00:00 Ondansetron HCl (Zofran) 4 mg Q6H PRN IVP Nausea & Vomiting 01/08/17 00:00 02/07/17 00:00 Polyethylene Glycol (Miralax) 17 gm HSPRN PRN ORAL Constipation 01/08/17 00:00 02/07/17 00:00 Zolpidem Tartrate (Ambien) 5 mg HSPRN PRN ORAL Insomnia 01/08/17 00:00 02/07/17 00:00 David GrigsbyMell meza NP Jan 09, 2017 08:14
--- NOTE | 2017-01-09 08:24 | Diagnostic Imaging Report ---
Indication: Chest pain Technique: One view of the chest Comparison: 01/01/17 Findings: Body habitus limits evaluation. Diffuse haziness to both lung baum is probably secondary prominent overlying soft tissue, although a component of parenchymal disease not excludable. No definite focal infiltrates. Pleural spaces are grossly clear. Heart is upper limits normal in size. Impression: Doubt acute process; hazy parenchymal disease bilaterally not completely excludable. This agrees with the preliminary interpretation provided by the emergency room physician
[2017-01-09] MEDS: Heparin 5000 units/ml inj SUBQ SCH (08:58)
[2017-01-09] MEDS: Docusate 100mg cap ORAL SCH (08:58)
[2017-01-09 12:00] VITALS: BP 117/64
[2017-01-09] MEDS: Aspirin EC 81mg tab ORAL SCH (15:14)
--- NOTE | 2017-01-09 15:32 | Diagnostic Imaging Report ---
Indications: Chest pain Technique: Single day single isotope protocol utilized. Initially, resting images obtained using IV administration 11.1 millicuries 99M technetium Myoview. Subsequently, patient underwent Dobutamine stress testing. See cardiology report for details. During dobutamine infusion, IV administration 32.1 mCi 99 M technetium Myoview. SPECT and planar images obtained. SPECT images gated to 8 phases of the cardiac cycle were also obtained, and reformatted into cine images for evaluation of ejection fraction. Comparison: None Findings: Per cardiology report, patient experienced no symptoms. Per cardiology report, resting EKG demonstrates normal sinus rhythm with nonspecific ST-T wave changes. No changes were reported during infusion. Imaging demonstrates normal post stress perfusion. No fixed nor reversible perfusion defects are demonstrated. Normal left ventricular chamber size.. Calculated post stress ejection fraction 61% . No focal wall motion abnormality demonstrated. Impression: Nonischemic clinical response to pharmacologic stress, per cardiology report Nonischemic electrocardiographic response to pharmacologic stress, per cardiology report No imaging findings to suggest ischemia, at level of stress achieved. Calculated post stress ejection fraction 61%
[2017-01-09] MEDS ORDERED: LIPITOR20 MG ORAL (16:36)
[2017-01-09] MEDS ORDERED: ASPIRIN EC81 MG ORAL (16:36)
[2017-01-09] MEDS ORDERED: Tubing Blood Filter IV ONE (17:39)
[2017-01-09] MEDS ORDERED: NS 275ml ONE (17:39)
[2017-01-09] MEDS ORDERED: Tubing IV Secondary IV ONE (17:39)
--- NOTE | 2017-01-09 18:50 | Cardiology Report ---
APPROVED REPORT EKG Measurement Heart [id number] ND [id number] Normal sinus rhythm Normal ECG
--- NOTE | 2017-01-12 08:11 | Cardiology Report ---
APPROVED REPORT EXAM: Two-dimensional and M-mode echocardiogram with Doppler and color Doppler. INDICATION Chest Pain M-Mode DIMENSIONS IVSd1.4 (0.7-1.1cm)Left Atrium (MM)3.7 (1.6-4.0cm) LVDd4.4 (3.5-5.6cm)Aortic Root2.7 (2.0-3.7cm) PWd1.1 (0.7-1.1cm)Aortic Cusp Exc.1.8 (1.5-2.0cm) LVDs2.7 (2.5-4.0cm) PWs1.6 cm Very limited study due to poor acoustical windows. Normal left ventricular chamber size, systolic function and wall motion to extent visualized. Left ventricular ejection fraction grossly estimated 55-60 %. Study quality precludes accurate assessment of regional wall motion. Mild left ventricular hypertrophy. No evidence of pericardial effusion. Anterior Echo-free space, may be due to pericardial fat or effusion. All other cardiac chamber sizes appear to be within normal limits. Thickened mitral valve leaflets with normal excursion. Normal pulmonic valve structure. Normal tricuspid valve structure. A color flow and spectral Doppler study was performed and revealed: Trace tricuspid regurgitation.
--- NOTE | 2017-01-12 08:35 | Discharge Summary ---
Discharge Summary Hospital Course Date of Admission Jan 07, 2017 at 22:37 Date of Discharge Jan 09, 2017 at 17:40 Admitting Diagnosis ACS HPI Bari Mitchell is a 61 year old female who was admitted on Jan 07, 2017 at 22: 37 for Acute Coronary Syndrome Hospital Course dc summary #[id number] Discharge Medications New Medications: Aspirin Ec* (Aspirin Ec*) 81 Mg Tablet.dr 81 MG ORAL DAILY, #30 TAB Atorvastatin Calcium* (Lipitor*) 20 Mg Tablet 20 MG ORAL BEDTIME, #30 TAB Continued Medications: Albuterol Sulfate* (Albuterol Sulfate Mdi*) 8.5 Gm Hfa.aer.ad 2 PUFF INH Q4H, #1 INH 0 Refills Hydrochlorothiazide* (Hydrochlorothiazide*) 25 Mg Tablet 25 MG ORAL DAILY for 30 Days, #30 TAB Discharge Condition Upon Discharge: stable Discharge Disposition Patient was discharged to Home (01) Discharge Diagnoses: David (Taz),Mell WILDER Jan 12, 2017 08:35
--- NOTE | 2017-01-12 10:01 | Discharge Summary 2 SIG ---
DATE OF ADMISSION: 01/07/2017 DATE OF DISCHARGE: 01/09/2017 REASON FOR ADMISSION: 60-year-old female, with history of hypertension, diabetes, asthma, presented to emergency room with complaint of chest pain, reporting as a midsternal, pressure-like, 10/10. After nitroglycerin x2 pain improved to 7/10. No shortness of breath. Patient was admitted for evaluation. ADMITTING DIAGNOSIS 1. Chest pain 2. Rule out acute coronary syndrome 3. Hypertension 4,. Diabetes, HOSPITAL STAY: The patient admitted to telemetry. Serial troponin were negative. EKG revealed no acute ischemic changes. The patient was ruled out per protocol for acute myocardial infarction. Echocardiogram revealed preserved ejection fraction of 55% to 60%. Cardiology consult requested who had seen and evaluated the patient. Due to the risk factors fro coronary artery disease, the patient was scheduled for a stress test. Dobutamine stress test was nonischemic. Blood sugar was managed with sliding scale of insulin. Blood pressure was managed with hydrochlorothiazide , beta-allison and calcium channel allison were on hold prior to test., resumed afterwards. Supplemental oxygen and pulmonary toilet provided as needed. Pulse oximetry was stable on room air. Lipid panel revealed elevated LDL with normal triglycerides and total cholesterol. Aspirin and statin were added to the patient's medication regimen. Chest pain was non cardiac, possibly due to costochondritis. recommended nonsteroid antiinflammatory trial over the counter as needed for pain. DVT prophylaxis provided. Pain management provided. The patient was stable for discharge. Follow up with the primary doctor. DISCHARGE DIAGNOSES: 1. Noncardiac chest pain 2. Possibly costochondritis. 3. Diabetes. 4. Hypertension. 5. History of asthma. Catrachita Aranda M.D. Mell BourgeoisRockland Psychiatric CenterAyden N.PTorin DR: VLADIMIR JOB#: [id number] CC: NAS
== END 2017-01-09 17:40 | disposition home or self-care (01) | DRG 203 ==
LOC: EDBD 20:59 → EMR 21:30 → 2E 22:37 → EDBEDREQ 23:12
DX: M94.0 Chondrocostal junction syndrome [Tietze] (principal); Z68.42 Body mass index [BMI] 45.0-49.9, adult; I10 Essential (primary) hypertension; R07.89 Other chest pain; E11.9 Type 2 diabetes mellitus without complications; J45.909 Unspecified asthma, uncomplicated; E66.01 Morbid (severe) obesity due to excess calories
CPT/HCPCS: 36415; 71010; 78452; 80053; 80061; 81003; 82550; 82553; 83036; 83735; 83880; 84443; 84484; 85025; 87081; 87086; 93005; 93017; 93306; 94640; 94664; 94760

== ENCOUNTER 2017-05-17 11:45 | Emergency (ER) | payer MEDICAID, OTHER ==
[~2017-05-17] VITALS: Ht 152.4 cm; Wt 86.2 kg
[~2017-05-17 11:45] MED LIST changes: +ASPIRIN EC81 MG ORAL; +LIPITOR20 MG ORAL
[2017-05-17] MEDS ORDERED: Albuterol/Ipratropium 3ml neb HHN ONE (12:15)
[2017-05-17 12:18] VITALS: BP 142/80
[2017-05-17] MEDS ORDERED: ALBUTEROL SULF8.5 GM INH (13:45)
[2017-05-17] MEDS ORDERED: ZITHROMAX250 MG ORAL (13:45)
[2017-05-17] MEDS ORDERED: ADULT WAL-100 MG/5 M ORAL (13:51)
[2017-05-17 14:11] VITALS: BP 140/98
--- NOTE | 2017-05-17 15:06 | Emergency Room Report ---
History of Present Illness General Chief Complaint: General Complaint Present Illness HPI Patient 61-year-old female presented after increased congestion. She gradual onset of symptoms. She reported having increased nasal congestion as well as wheezing. She prior history of asthma. She reports having gradually worsening difficulty breathing. She denies any chest pain. Patient had a nonproductive cough. She had not been vomiting or having diarrhea. She reports having some sore throat Allergies: Coded Allergies: BANANA (Verified Allergy, Unknown, 12/30/16) Patient History Past Medical History: see triage record Reviewed Nursing Documentation: PMH: Agreed, PSxH: Agreed Nursing Documentation-PMH Hx Cardiac Problems: Yes Hx Hypertension: Yes Hx Asthma: Yes Hx Diabetes: Yes - controlled by diet Hx Cancer: No Hx Gastrointestinal Problems: No Hx Neurological Problems: No Review of Systems All Other Systems: negative except mentioned in HPI Physical Exam Vital Signs Date Time Temp Pulse Resp B/P (MAP) Pulse Ox O2 Delivery O2 Flow Rate FiO2 05/17/17 11:52 98.2 90 20 168/90 96 Room Air 05/17/17 12:10 21 Sp02 EP Interpretation: reviewed, normal General Appearance: normal inspection, alert, GCS 15, mild distress, obese, Chronically Ill Head: atraumatic ENT: normal ENT inspection, hearing grossly normal, normal voice Neck: normal inspection, full range of motion, supple, no bony tend Respiratory: normal inspection, normal breath sounds, no respiratory distress, no retraction, wheezing Cardiovascular #1: regular rate, rhythm, no edema Gastrointestinal: normal inspection, normal bowel sounds, non tender, soft, no guarding, no hernia Genitourinary: no CVA tenderness Musculoskeletal: normal inspection, back normal, normal range of motion Neurologic: normal inspection, alert, oriented x3, responsive, patient financial advocate III-XII nml as tested, speech normal Psychiatric: normal inspection, judgement/insight normal, mood/affect normal Skin: normal inspection, normal color, no rash Medical Decision Making Diagnostic Impression: Primary Impression: Pneumonia ER Course Patient presented for shortness of breath. Differential included but was not limited to anemia, pneumonia, pneumothorax, myocardial infarction, pericardial effusion, congestive heart failure, acidosis. X-ray imaging of the chest one view interpreted by me showed normal cardiac size with what appears to be a right middle lobe infiltrate. Patient noted have adequate oxygen saturation. She is given protrusion for her antibiotics as well as inhaler. Patient is advised to return if she began having worsening difficulty breathing chest pain or other concerns. She is advised followup with her physician one day. EKG Diagnostic Results Rate: normal ST Segments: no acute changes Rhythm Strip Diag. Results EP Interpretation: yes Rhythm: NSR, no PVC's, no ectopy Last Vital Signs Date Time Temp Pulse Resp B/P (MAP) Pulse Ox O2 Delivery O2 Flow Rate FiO2 05/17/17 14:11 98.0 74 16 140/98 97 Room Air 21 Status: improved Disposition: HOME, SELF-CARE Condition: Improved Scripts Guaifenesin* (ADULT WAL-TUSSIN*) 100 Mg/5 Ml Liquid 10 ML ORAL Q4H, #120 ML Prov: Kale Garcia 05/17/17 Albuterol Sulfate* (ALBUTEROL SULFATE MDI*) 8.5 Gm Hfa.aer.ad 2 PUFF INH Q6H, #1 EA 0 Refills Prov: Kale Garcia 05/17/17 Azithromycin* (ZITHROMAX*) 250 Mg Tablet 250 MG ORAL DAILY, #6 TAB 0 Refills Take two tables once daily for 1 day, then one tablet once daily for 4 days. Prov: Kale Garcia 05/17/17 Patient Instructions: Asthma, Adult JoseKale May 17, 2017 15:06
--- NOTE | 2017-05-18 14:53 | Diagnostic Imaging Report ---
Indication: Dyspnea Comparison: None A single view chest radiograph was obtained. Findings: Query mild interstitial edema centrally. Heart size is normal. No definite pleural effusions are seen. Bones are unremarkable. Impression: Question of mild interstitial edema
--- NOTE | 2017-05-18 20:18 | Cardiology Report ---
APPROVED REPORT EKG Measurement Heart [id number] [place] [id number] Normal sinus rhythm Anterior infarct, age undetermined Abnormal ECG
--- NOTE | 2017-05-18 20:18 | Cardiology Report ---
APPROVED REPORT EKG Measurement Heart [id number] [place] 148P47 [id number] Normal sinus rhythm Anterior infarct, age undetermined Abnormal ECG
--- NOTE | 2017-05-18 20:18 | Cardiology Report ---
APPROVED REPORT EKG Measurement Heart [id number] [place] 148P47 [id number] Normal sinus rhythm Anterior infarct, age undetermined Abnormal ECG
== END 2017-05-17 14:15 | disposition home or self-care (01) ==
LOC: EMR 12:08
DX: J18.9 Pneumonia, unspecified organism (principal); J45.909 Unspecified asthma, uncomplicated; E11.9 Type 2 diabetes mellitus without complications
CPT/HCPCS: 71010; 93005; 94640; 94664; 99283; J7620